=== PATIENT | male | born 1980 | race Two or more races ===

== ENCOUNTER 2023-07-04 02:49 | Emergency (ER) | payer BC, MEDICAID, OTHER ==
[~2023-07-04] VITALS: Ht 193 cm; Wt 145.4 kg
[2023-07-04 03:16] VITALS: TEMP 99.2
[2023-07-04 03:29] LABS: Basophils # (auto) 0.1 10 ^3/uL (0-0.2); Basophils % (auto) 0.8 % (0.0-2.0); Eosinophils # (auto) 0.1 10 ^3/uL (0-0.8); Eosinophils % (auto) 0.5 % (0.0-7.0); Hematocrit 45.4 % (41.0-53.0); Hemoglobin 15.2 g/dL (13.5-17.5); Lymphocytes % (auto) 11.3 % (10.0-50.0); Mean Corpuscular Hemoglobin 28.9 pg (28.0-32.0); Mean Corpuscular Hgb Conc. 33.5 g/dL (32.0-36.0); Mean Corpuscular Volume 86.2 fL (80.0-100.0); Monocytes # (auto) 0.8 10 ^3/uL (0-1.3); Monocytes % (auto) 4.8 % (0.0-12.0); Neutrophils # (auto) 14.5 10 ^3/uL (1.6-8.6); Neutrophils % (auto) 82.6 % (37.0-80.0); Nucleated Red Blood Cells % 0.1 %; Red Blood Cells 5.26 10^6/uL (4.5-5.90); Red Cell Distribution Width 14.2 % (11.8-14.3); White Blood Cell 17.5 10^3/uL (4.4-10.8)
[2023-07-04 03:30] VITALS: PULSE 92; RESP 17; O2SAT 97
[2023-07-04 03:37] LABS: Chloride 105 mmol/L (98-107); Potassium 4.4 mmol/L (3.5-5.1); Sodium 139 mmol/L (136-145)
[2023-07-04 03:38] LABS: Anion Gap 8 (5-15); Carbon Dioxide 26 mmol/L (20-30)
[2023-07-04 03:39] LABS: Calcium 10.1 mg/dL (8.5-10.1)
[2023-07-04 03:43] LABS: Glucose 162 mg/dL (74-106)
[2023-07-04 03:44] LABS: Blood Alcohol < 3.0 mg/dL (<10)
[2023-07-04 03:48] LABS: BUN/Creatinine Ratio 5.8 (10.0-20.0); Blood Urea Nitrogen < 5 mg/dL (9-23)
[2023-07-04] MEDS: LORazepam 2MG/ML-1ML VIAL IV ONE (05:51)
[2023-07-04] MEDS: KETOROLAC TROMETH 30 MG/ML 1ML VIAL IV ONE (05:51)
[2023-07-04 06:00] VITALS: BP 150/64; PULSE 78; RESP 19; O2SAT 96
== END 2023-07-04 07:15 | disposition left against medical advice (07) ==
LOC: ER 02:49 → EDBD 02:49 → ER 07:15
DX: F19.139 Other psychoactive substance abuse with withdrawal, unspecified (principal); R25.1 Tremor, unspecified; Z88.0 Allergy status to penicillin; V89.2XXA Person injured in unspecified motor-vehicle accident, traffic, initial encounter; Y93.I9 Activity, other involving external motion; Y92.89 Other specified places as the place of occurrence of the external cause; Y99.8 Other external cause status
CPT/HCPCS: 36415; 70450; 80048; 80320; 85025; 96374; 96375; 99285; J1885; J2060

== ENCOUNTER 2023-07-04 11:16 | Emergency (ER) | payer BC, MEDICAID ==
[~2023-07-04] VITALS: Ht 177.8 cm; Wt 86.3 kg
[2023-07-04 12:00] VITALS: BP 148/88; PULSE 110; RESP 18; TEMP 98.5; O2SAT 100
== END 2023-07-04 12:51 | disposition home or self-care (01) ==
LOC: ER 11:16 → EDBD 11:16 → ER 12:51
DX: F19.10 Other psychoactive substance abuse, uncomplicated (principal); F20.9 Schizophrenia, unspecified; Z76.5 Malingerer [conscious simulation]; Z88.0 Allergy status to penicillin; Z79.899 Other long term (current) drug therapy
CPT/HCPCS: 93005

== ENCOUNTER 2023-07-04 15:15 | Emergency (ER) | payer BC, MEDICAID | END 2023-07-04 16:32 | disposition left against medical advice (07) | LOC: ER 15:15 | DX: M54.9 Dorsalgia, unspecified (principal); Z53.21 Procedure and treatment not carried out due to patient leaving prior to being seen by health care provider ==